=== PATIENT | male | born 1980 | race Asian ===

== ENCOUNTER 2020-03-24 23:47 | Inpatient (IN) | payer SELFPAY ==
[~2020-03-24] VITALS: Ht 167.6 cm; Wt 77.6 kg
[2020-03-24 23:55] VITALS: BP 147/82
[2020-03-25] VITALS (7 sets, daily range): BP systolic 102–123; BP diastolic 54–68
[2020-03-25] MEDS ORDERED: Ketorolac 30mg Inj IV ONE
[2020-03-25] MEDS ORDERED: Lidocaine 2% Visc 15ml soln ORAL ONE
[2020-03-25] MEDS ORDERED: Dicyclomine HCl 10mg/5ml oral soln ORAL ONE
[2020-03-25] MEDS ORDERED: Mylanta II UD 30ml ORAL ONE
[2020-03-25] MEDS ORDERED: Omnipaque-300 100ml vial INJ PRN (00:15)
[2020-03-25] MEDS ORDERED: Morphine Sulfate 4mg/ml Inj (IV USE ONLY) IVP ONE (00:15)
[2020-03-25 00:23] LABS: BASOPHILS % (AUTO) 0.9 % (0.0-2.0); EOSINOPHILS % (AUTO) 0.7 % (0.0-3.0); HEMATOCRIT 51.7 % (42.0-52.0); HEMOGLOBIN 17.3 G/DL (14.2-18.0); LYMPHOCYTES % (AUTO) 30.6 % (20.0-45.0); MEAN CORPUSCULAR VOLUME 94 FL (80-99); MONOCYTES % (AUTO) 6.2 % (1.0-10.0); NEUTROPHILS % (AUTO) 61.7 % (45.0-75.0); PLATELET COUNT 304 K/UL (150-450); RED BLOOD COUNT 5.49 M/UL (4.70-6.10); RED CELL DISTRIBUTION WIDTH 11.5 % (11.6-14.8)
[2020-03-25 00:32] LABS: ANION GAP 14 mmol/L (5-15); BLOOD UREA NITROGEN 13 mg/dL (7-18); CALCIUM 9.5 MG/DL (8.5-10.1); CARBON DIOXIDE 21 MMOL/L (21-32); CHLORIDE 105 MMOL/L (98-107); CREATININE 1.4 MG/DL (0.55-1.30); SODIUM 140 MMOL/L (136-145)
--- NOTE | 2020-03-25 00:33 | Emergency Room Report ---
History of Present Illness General Chief Complaint: Abdominal Pain Source: Patient Present Illness HPI 39-year-old male presents the ED complaining of abdominal pain. Came from home. Pain started tonight. Clutching his abdomen screaming in pain in triage. Pain is epigastric, 10 out of 10, sharp, nonradiating. Denies nausea or vomiting. Denies chest pain or shortness of breath. Patient had a bottle of Nexium and a bottle of docusate. No other aggravating relieving factors. Denies any other associated symptoms Allergies: Coded Allergies: No Known Allergies (Unverified , 03/24/20) COVID-19 Screening Contact w/high risk pt: No Experienced COVID-19 symptoms?: No COVID-19 Testing performed RISK ADJUSTMENT SPECIALIST: No Patient History Past Medical History: GERD Past Surgical History: none Pertinent Family History: none Social History: Denies: smoking, alcohol use, drug use Immunizations: UTD Reviewed Nursing Documentation: PMH: Agreed; PSxH: Agreed Nursing Documentation-PMH Past Medical History: No History, Except For Hx Gastrointestinal Problems: Yes Review of Systems All Other Systems: negative except mentioned in HPI Physical Exam Vital Signs Date Time Temp Pulse Resp B/P (MAP) Pulse Ox O2 Delivery O2 Flow Rate FiO2 03/24/20 23:54 97.9 79 18 149/90 (109) 100 Room Air 03/24/20 23:55 99 Sp02 EP Interpretation: reviewed, normal General Appearance: alert, GCS 15, non-toxic, mild distress Head: normocephalic, atraumatic Eyes: bilateral eye normal inspection, bilateral eye PERRL ENT: hearing grossly normal, normal pharynx, no angioedema, normal voice Neck: full range of motion, supple/symm/no masses Respiratory: chest non-tender, lungs clear, normal breath sounds, speaking full sentences Cardiovascular #1: regular rate, rhythm, no edema Cardiovascular #2: 2+ carotid (R), 2+ carotid (L), 2+ radial (R), 2+ radial (L) , 2+ dorsalis pedis (R), 2+ dorsalis pedis (L) Gastrointestinal: normal bowel sounds, soft, non-distended, no guarding, no rebound, tenderness Rectal: deferred Genitourinary: normal inspection, no CVA tenderness Musculoskeletal: back normal, normal range of motion, gait/station normal, non- tender Neurologic: alert, motor strength/tone normal, oriented x3, sensory intact, responsive, speech normal Psychiatric: judgement/insight normal, memory normal, mood/affect normal, no suicidal/homicidal ideation Reflexes: 3+ bicep (R), 3+ bicep (L), 3+ tricep (R), 3+ tricep (L), 3+ knee (R) , 3+ knee (L) Skin: no rash Lymphatic: no adenopathy Medical Decision Making Diagnostic Impression: Primary Impression: Cholecystitis ER Course Hospital Course 39-year-old M presents to ED with upper abd pain Differential diagnoses include: Appendicitis, cholecystitis, small bowel obstruction Clinical course Patient placed on stretcher. pamphlet distributor. After initial history and physical I ordered labs, IV fluids, UA, pain medication and CT Labs - no leukocytosis noted, Hb/Hct stable. electrolytes ok. CT A/P - cystic duct dilated with GB distension ? cholecysitis Antibiotics given. Case discussed with Dr. Keller and he agreed to consult. Case discussed with Dr. De La Rosa and he agreed to accept the patient to his service for further care and support I feel this is a highly complex case requiring extensive working including EKG/ Rhythm strip, Xray/CT/US, Blood/urine lab work, repeat exams while in ED, and administration of strong opiates/narcotics for pain control, admission to hospital or close patient follow up. Diagnosis - cholecystitis Patient admitted to hospital in serious condition Laboratory Tests Test 03/25/20 00:00 White Blood Count 10.0 K/UL (4.8-10.8) Red Blood Count 5.49 M/UL (4.70-6.10) Hemoglobin 17.3 G/DL (14.2-18.0) Hematocrit 51.7 % (42.0-52.0) Mean Corpuscular Volume 94 FL (80-99) Mean Corpuscular Hemoglobin 31.5 PG (27.0-31.0) H Mean Corpuscular Hemoglobin Concent 33.5 G/DL (32.0-36.0) Red Cell Distribution Width 11.5 % (11.6-14.8) L Platelet Count 304 K/UL (150-450) Mean Platelet Volume 6.0 FL (6.5-10.1) L Neutrophils (%) (Auto) 61.7 % (45.0-75.0) Lymphocytes (%) (Auto) 30.6 % (20.0-45.0) Monocytes (%) (Auto) 6.2 % (1.0-10.0) Eosinophils (%) (Auto) 0.7 % (0.0-3.0) Basophils (%) (Auto) 0.9 % (0.0-2.0) Prothrombin Time 11.7 SEC (9.30-11.50) H Prothromb Time International Ratio 1.1 (0.9-1.1) Activated Partial Thromboplast Time 27 SEC (23-33) Urine Color Pale yellow Urine Appearance Clear Urine pH 5 (4.5-8.0) Urine Specific [place] 1.010 (1.005-1.035) Urine Protein Negative (NEGATIVE) Urine Glucose (UA) Negative (NEGATIVE) Urine Ketones 3+ (NEGATIVE) H Urine Blood Negative (NEGATIVE) Urine Nitrite Negative (NEGATIVE) Urine Bilirubin Negative (NEGATIVE) Urine Urobilinogen Normal MG/DL (0.0-1.0) Urine Leukocyte Esterase Negative (NEGATIVE) Sodium Level 140 MMOL/L (136-145) Potassium Level 3.0 MMOL/L (3.5-5.1) L Chloride Level 105 MMOL/L (98-107) Carbon Dioxide Level 21 MMOL/L (21-32) Anion Gap 14 mmol/L (5-15) Blood Urea Nitrogen 13 mg/dL (7-18) Creatinine 1.4 MG/DL (0.55-1.30) H Estimat Glomerular Filtration Rate 57.0 mL/min (>60) Glucose Level 124 MG/DL (74-106) H Calcium Level 9.5 MG/DL (8.5-10.1) Total Bilirubin 0.6 MG/DL (0.2-1.0) Aspartate Amino Transf (AST/SGOT) 37 U/L (15-37) Alanine Aminotransferase (ALT/SGPT) 164 U/L (12-78) H Alkaline Phosphatase 82 U/L (46-116) Total Protein 7.9 G/DL (6.4-8.2) Albumin 4.5 G/DL (3.4-5.0) Globulin 3.4 g/dL Albumin/Globulin Ratio 1.3 (1.0-2.7) Lipase 261 U/L (73-393) CT/MRI/US Diagnostic Results CT/MRI/US Diagnostic Results : Imaging Test Ordered: CT A/P Impression EXAM: CT Abdomen and Pelvis With Intravenous Contrast CLINICAL HISTORY: ABD PAIN TECHNIQUE: Axial computed tomography images of the abdomen and pelvis with intravenous contrast. CTDI is 4 mGy and DLP is 248 mGy-cm. One or more of the following dose reduction techniques were used: automated exposure control, adjustment of the mA and/or kV according to patient size, use of iterative reconstruction technique. COMPARISON: No relevant prior studies available. FINDINGS: Lung bases: Unremarkable. No mass. No consolidation. ABDOMEN: Liver: Unremarkable. No mass. Gallbladder and bile ducts: There is a 7 mm stone within the cystic duct. The gallbladder is distended. Pancreas: Unremarkable. No mass. No ductal dilation. Spleen: Unremarkable. No splenomegaly. Adrenals: Unremarkable. No mass. Kidneys and ureters: A tiny focus of decreased attenuation at the lower pole of the left kidney is too small to characterize by CT criteria. No solid mass. No hydronephrosis. Stomach and bowel: Unremarkable. No obstruction. No mucosal thickening. PELVIS: Appendix: No findings to suggest acute appendicitis. Bladder: Unremarkable. No mass. Reproductive: Unremarkable as visualized. ABDOMEN and PELVIS: Intraperitoneal space: Unremarkable. No free air. No significant fluid collection. Bones/joints: There are degenerative changes at L5-S1. 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 No dislocation. Soft tissues: There is prominence of breast tissue consistent with gynecomastia. Vasculature: Unremarkable. No abdominal aortic aneurysm. Lymph nodes: Unremarkable. No enlarged lymph nodes. IMPRESSION: 7 mm cystic duct calculus with gallbladder distention. Findings are concerning for cholecystitis. Last Vital Signs Date Time Temp Pulse Resp B/P (MAP) Pulse Ox O2 Delivery O2 Flow Rate FiO2 03/24/20 23:55 98.2 76 18 147/82 99 Room Air 03/24/20 23:55 99 Status: improved Disposition: ADMITTED INPATIENT Condition: Serious Referrals: NOT CHOSEN IPA/,REFERRING (PCP) Clayton Broussard MD Mar 25, 2020 00:33
[2020-03-25 00:37] LABS: ALANINE AMINOTRANSFERASE 164 U/L (12-78); ALBUMIN 4.5 G/DL (3.4-5.0); ALBUMIN/GLOBULIN RATIO 1.3 (1.0-2.7); ALKALINE PHOSPHATASE 82 U/L (46-116); ASPARTATE AMINO TRANSFERASE 37 U/L (15-37); BILIRUBIN,TOTAL 0.6 MG/DL (0.2-1.0)
--- NOTE | 2020-03-25 01:36 | Diagnostic Imaging Report ---
EXAM: CT Abdomen and Pelvis With Intravenous Contrast CLINICAL HISTORY: ABD PAIN TECHNIQUE: Axial computed tomography images of the abdomen and pelvis with intravenous contrast. CTDI is 4 mGy and DLP is 248 mGy-cm. One or more of the following dose reduction techniques were used: automated exposure control, adjustment of the mA and/or kV according to patient size, use of iterative reconstruction technique. COMPARISON: No relevant prior studies available. FINDINGS: Lung bases: Unremarkable. No mass. No consolidation. ABDOMEN: Liver: Unremarkable. No mass. Gallbladder and bile ducts: There is a 7 mm stone within the cystic duct. The gallbladder is distended. Pancreas: Unremarkable. No mass. No ductal dilation. Spleen: Unremarkable. No splenomegaly. Adrenals: Unremarkable. No mass. Kidneys and ureters: A tiny focus of decreased attenuation at the lower pole of the left kidney is too small to characterize by CT criteria. No solid mass. No hydronephrosis. Stomach and bowel: Unremarkable. No obstruction. No mucosal thickening. PELVIS: Appendix: No findings to suggest acute appendicitis. Bladder: Unremarkable. No mass. Reproductive: Unremarkable as visualized. ABDOMEN and PELVIS: Intraperitoneal space: Unremarkable. No free air. No significant fluid collection. Bones/joints: There are degenerative changes at L5-S1. 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 No dislocation. Soft tissues: There is prominence of breast tissue consistent with gynecomastia. Vasculature: Unremarkable. No abdominal aortic aneurysm. Lymph nodes: Unremarkable. No enlarged lymph nodes. IMPRESSION: 7 mm cystic duct calculus with gallbladder distention. Findings are concerning for cholecystitis.
[2020-03-25] MEDS ORDERED: Piperacillin/Tazobactam 3.375 GM in NS 110 ML IVPB ONE (01:45)
[2020-03-25 01:55] LABS: INR 1.1 (0.9-1.1)
[2020-03-25] MEDS ORDERED: Ketorolac 30mg Inj IV PRN (02:30)
[2020-03-25 02:48] LABS: APPEARANCE,URINE CLEAR; BILIRUBIN, URINE NEGATIVE (NEGATIVE); COLOR,URINE PALE YELLOW; GLUCOSE, URINE (UA) NEGATIVE (NEGATIVE); KETONES,URINE 3+ (NEGATIVE); LEUKOCYTE ESTERASE ,URINE NEGATIVE (NEGATIVE); NITRITE,URINE NEGATIVE (NEGATIVE); PH,URINE 5 (4.5-8.0); PROTEIN,URINE NEGATIVE (NEGATIVE); UROBILINOGEN,URINE NORMAL MG/DL (0.0-1.0)
[2020-03-25] MEDS ORDERED: D5 1/2NS 1,000 ML IV SCH (06:45)
[2020-03-25] MEDS ORDERED: Morphine Sulfate 2mg/ml Inj(IV/IM USE ONLY) IVP PRN (06:45)
--- NOTE | 2020-03-25 11:03 | Consultation ---
History of Present Illness General Date patient seen: Mar 25, 2020 Chief Complaint: Abdominal Pain Present Illness HPI 39 y/o M with hx of GERD presented to ED on 03/24 with 1 day of abd pain ( epigastric, 10/10 intensity, sharp, non radiating) Denied nausea, vomiting, CP, SOB. Allergies: Coded Allergies: No Known Allergies (Unverified , 03/24/20) Patient History Healthcare decision maker Resuscitation status Advanced Directive on File Patient History Narrative Pmhx: as above Shx: Denies: smoking, alcohol use, drug use Fhx: non contributory Review of Systems All Other Systems: negative except mentioned in HPI Physical Exam Physical Exam Narrative General Appearance: aler Head: normocephalic, atraumatic Eyes: bilateral eye normal inspection, bilateral eye PERRL ENT: hearing grossly normal, normal pharynx, no angioedema, normal voice Neck: full range of motion, supple/symm/no masses Respiratory: chest non-tender, lungs clear, normal breath sounds, speaking full sentences Cardiovascular #1: regular rate, rhythm, no edema Gastrointestinal: normal bowel sounds, soft, non-distended, no guarding, no rebound, tenderness Last 24 Hour Vital Signs Date Time Temp Pulse Resp B/P (MAP) Pulse Ox O2 Delivery O2 Flow Rate FiO2 03/25/20 09:00 Room Air 03/25/20 08:00 98.7 66 18 106/54 (71) 97 03/25/20 04:00 98.1 71 16 106/68 (81) 98 03/25/20 03:54 Room Air 03/25/20 03:35 98.1 63 18 123/65 99 Room Air 99 03/25/20 03:34 98.1 63 18 123/65 99 Room Air 99 03/25/20 02:00 98.5 68 18 119/62 99 Room Air 99 03/24/20 23:55 98.2 76 18 147/82 99 Room Air 03/24/20 23:55 76 18 Room Air 99 03/24/20 23:54 97.9 79 18 149/90 (109) 100 Room Air Intake and Output 03/24/20 03/25/20 18:59 06:59 Intake Total 1000 ml Balance 1000 ml Intake IV Total 1000 ml # Bowel Movements 1 Laboratory Tests Test 03/25/20 00:00 White Blood Count 10.0 K/UL (4.8-10.8) Red Blood Count 5.49 M/UL (4.70-6.10) Hemoglobin 17.3 G/DL (14.2-18.0) Hematocrit 51.7 % (42.0-52.0) Mean Corpuscular Volume 94 FL (80-99) Mean Corpuscular Hemoglobin 31.5 PG (27.0-31.0) H Mean Corpuscular Hemoglobin Concent 33.5 G/DL (32.0-36.0) Red Cell Distribution Width 11.5 % (11.6-14.8) L Platelet Count 304 K/UL (150-450) Mean Platelet Volume 6.0 FL (6.5-10.1) L Neutrophils (%) (Auto) 61.7 % (45.0-75.0) Lymphocytes (%) (Auto) 30.6 % (20.0-45.0) Monocytes (%) (Auto) 6.2 % (1.0-10.0) Eosinophils (%) (Auto) 0.7 % (0.0-3.0) Basophils (%) (Auto) 0.9 % (0.0-2.0) Prothrombin Time 11.7 SEC (9.30-11.50) H Prothromb Time International Ratio 1.1 (0.9-1.1) Activated Partial Thromboplast Time 27 SEC (23-33) Urine Color Pale yellow Urine Appearance Clear Urine pH 5 (4.5-8.0) Urine Specific [place] 1.010 (1.005-1.035) Urine Protein Negative (NEGATIVE) Urine Glucose (UA) Negative (NEGATIVE) Urine Ketones 3+ (NEGATIVE) H Urine Blood Negative (NEGATIVE) Urine Nitrite Negative (NEGATIVE) Urine Bilirubin Negative (NEGATIVE) Urine Urobilinogen Normal MG/DL (0.0-1.0) Urine Leukocyte Esterase Negative (NEGATIVE) Sodium Level 140 MMOL/L (136-145) Potassium Level 3.0 MMOL/L (3.5-5.1) L Chloride Level 105 MMOL/L (98-107) Carbon Dioxide Level 21 MMOL/L (21-32) Anion Gap 14 mmol/L (5-15) Blood Urea Nitrogen 13 mg/dL (7-18) Creatinine 1.4 MG/DL (0.55-1.30) H Estimat Glomerular Filtration Rate 57.0 mL/min (>60) Glucose Level 124 MG/DL (74-106) H Calcium Level 9.5 MG/DL (8.5-10.1) Total Bilirubin 0.6 MG/DL (0.2-1.0) Aspartate Amino Transf (AST/SGOT) 37 U/L (15-37) Alanine Aminotransferase (ALT/SGPT) 164 U/L (12-78) H Alkaline Phosphatase 82 U/L (46-116) Total Protein 7.9 G/DL (6.4-8.2) Albumin 4.5 G/DL (3.4-5.0) Globulin 3.4 g/dL Albumin/Globulin Ratio 1.3 (1.0-2.7) Lipase 261 U/L (73-393) Height (Feet): 5 Height (Inches): 6.00 Weight (Pounds): 171 Medications Current Medications Medications (Trade) Dose Ordered Sig/Carlos Alberto Route PRN Reason Start Time Stop Time Status Last Admin Dose Admin Acetaminophen (Tylenol) 650 mg Q6H PRN ORAL TEMP>100.5 03/25/20 02:30 Dextrose/Sodium Chloride 1,000 ml @ 60 mls/hr [id number] IV 03/25/20 06:45 04/24/20 06:44 03/25/20 06:46 Iohexol (OMNIPAQUE-300 100ml) 100 ml NOW PRN INJ Radiology Procedure 03/25/20 00:15 03/27/20 00:03 Ketorolac Tromethamine (Toradol 30mg) 15 mg PRN PRN IV Moderate Breakthru Pain (5-7) 03/25/20 02:30 Morphine Sulfate (Morphine Sulfate) 2 mg Q4H PRN IVP For Pain 03/25/20 06:45 04/01/20 06:44 Ondansetron HCl (Zofran) 4 mg Q4H PRN IVP Nausea & Vomiting 03/25/20 06:45 04/24/20 06:44 Assessment/Plan Assessment/Plan: Abx: Zosyn x1 03/25 Assessment: Acute cholecystitis -CT abd/p: 7 mm cystic duct calculus with gallbladder distention. Findings are concerning for cholecystitis. Afebrile No leukocytosis NELLI GERD Plan: -Start Ceftriaxone -f/u cx -Monitor CBC/CMP, temperatures -Sx eval Thank you for this consultation. Will continue to follow along with you. Discussed with KIANA. Ayleen Medina M.D. Mar 25, 2020 11:03
--- NOTE | 2020-03-25 11:55 | General Progress Note ---
Assessment/Plan Problem List: (1) Cholecystitis ICD Codes: K81.9 - Cholecystitis, unspecified SNOMED: [id number] Assessment/Plan: ct reviewed npo iv abx per ID pain control fu surg recs Subjective ROS Limited/Unobtainable: Yes Allergies: Coded Allergies: No Known Allergies (Unverified , 03/24/20) Objective Last 24 Hour Vital Signs Date Time Temp Pulse Resp B/P (MAP) Pulse Ox O2 Delivery O2 Flow Rate FiO2 03/25/20 09:00 Room Air 03/25/20 08:00 98.7 66 18 106/54 (71) 97 03/25/20 04:00 98.1 71 16 106/68 (81) 98 03/25/20 03:54 Room Air 03/25/20 03:35 98.1 63 18 123/65 99 Room Air 99 03/25/20 03:34 98.1 63 18 123/65 99 Room Air 99 03/25/20 02:00 98.5 68 18 119/62 99 Room Air 99 03/24/20 23:55 98.2 76 18 147/82 99 Room Air 03/24/20 23:55 76 18 Room Air 99 03/24/20 23:54 97.9 79 18 149/90 (109) 100 Room Air Intake and Output 03/24/20 03/25/20 19:00 07:00 Intake Total 1000 ml Balance 1000 ml Intake IV Total 1000 ml # Bowel Movements 1 Laboratory Tests 03/25/20 00:00: White Blood Count 10.0, Red Blood Count 5.49, Hemoglobin 17.3, Hematocrit 51.7, Mean Corpuscular Volume 94, Mean Corpuscular Hemoglobin 31.5H, Mean Corpuscular Hemoglobin Concent 33.5, Red Cell Distribution Width 11.5L, Platelet Count 304, Mean Platelet Volume 6.0L, Neutrophils (%) (Auto) 61.7, Lymphocytes (%) (Auto) 30.6, Monocytes (%) (Auto) 6.2, Eosinophils (%) (Auto) 0.7, Basophils (%) (Auto ) 0.9, Prothrombin Time 11.7H, Prothromb Time International Ratio 1.1, Activated Partial Thromboplast Time 27, Urine Color Pale yellow, Urine Appearance Clear, Urine pH 5, Urine Specific [place] 1.010, Urine Protein Negative, Urine Glucose (UA) Negative, Urine Ketones 3+H, Urine Blood Negative, Urine Nitrite Negative, Urine Bilirubin Negative, Urine Urobilinogen Normal, Urine Leukocyte Esterase Negative, Sodium Level 140, Potassium Level 3.0L, Chloride Level 105, Carbon Dioxide Level 21, Anion Gap 14, Blood Urea Nitrogen 13, Creatinine 1.4H, Estimat Glomerular Filtration Rate 57.0, Glucose Level 124H , Calcium Level 9.5, Total Bilirubin 0.6, Aspartate Amino Transf (AST/SGOT) 37, Alanine Aminotransferase (ALT/SGPT) 164H, Alkaline Phosphatase 82, Total Protein 7.9, Albumin 4.5, Globulin 3.4, Albumin/Globulin Ratio 1.3, Lipase 261 Height (Feet): 5 Height (Inches): 6.00 Weight (Pounds): 171 General Appearance: alert EENT: normal ENT inspection Neck: supple Cardiovascular: normal rate Respiratory/Chest: decreased breath sounds Abdomen: normal bowel sounds, non tender, soft Extremities: non-tender Doug Zamora MD Mar 25, 2020 11:55
[2020-03-25] MEDS ORDERED: cefTRIAXone 1 GM in D5W 55 ML IVPB SCH (12:00)
--- NOTE | 2020-03-25 13:00 | History and Physical Report ---
DATE OF ADMISSION: 03/25/2020 TIME SEEN: 10 a.m. CONSULTANTS: 1. Hossein Gregorio MD. 2. Doug Zamora MD. 3. Nic Keller MD. CHIEF COMPLAINT: Abdominal pain, nausea, vomiting, and cholecystitis. HISTORY OF PRESENT ILLNESS: This is a 39-year-old male, who lives at home, presented with two days of increased abdominal pain, nausea, and vomiting, came to [facility], diagnosed with cholecystitis admitted to medical floor. Currently, calm, in bed. No complaint. REVIEW OF SYSTEMS: No chest pain. No shortness of breath. Slight nausea and vomiting. PAST MEDICAL HISTORY: Nothing. PAST SURGICAL HISTORY: Hernia. ALLERGIES: Denies. MEDICATIONS: Include dextrose, morphine, Zofran, Tylenol, ketorolac, potassium, Zosyn, famotidine . SOCIAL HISTORY: No smoking. No alcohol. No intravenous drug abuse. FAMILY HISTORY: Noncontributory. PHYSICAL EXAMINATION: GENERAL: Calm in bed, oriented x3, in no acute distress. VITAL SIGNS: Temperature 98 degrees, pulse 66, respirations , blood pressure 106/54. CARDIOVASCULAR: No murmur. LUNGS: Distant and clear. ABDOMEN: Positive bowel sounds. Nontender and nondistended. EXTREMITIES: Show no cyanosis or edema. NEUROLOGIC: The patient moves all extremities, slightly weak. LABORATORY AND DIAGNOSTIC DATA: Labs at this time show CBC is normal. Potassium 3.0, creatinine 1.4. Glucose 124. ALT 164. INR is 1.1. PTT is 27 urinalysis, 3+ ketones. ASSESSMENT: 1. Cholecystitis. 2. Abdominal pain, nausea, and vomiting 3. Hypokalemia. PLAN: 1. NPO. 2. IV fluids. 3. Pain control. 4. Antibiotics per Infectious Disease. 5. PT and dietary evaluation. 6. CBC and BMP in the morning. 7. Replace potassium. Gerber De La Rosa D.O. DR: HUNTER JOB#: [id number] CC:
--- NOTE | 2020-03-25 20:31 | Consultation ---
History of Present Illness General Date patient seen: Mar 25, 2020 Reason for Hospitalization: Abdominal Pain Present Illness HPI 39M abd pain epigastric 10/10 for 1 day. states began yesterday. came to ED. labs nml. CT with cholelithiasis. admitted for surgical eval. since pain resolved. no n/v/f/c. labs nml. no complaints. hx prior episode few months back. prior on keto diet as well for 1 year but not now. Allergies: Coded Allergies: No Known Allergies (Unverified , 03/24/20) COVID-19 Screening Contact w/high risk pt: No Experienced COVID-19 symptoms?: No Patient History History Provided By: Patient Healthcare decision maker Resuscitation status Advanced Directive on File Past Medical/Surgical History Past Medical/Surgical History: (1) Cholecystitis Review of Systems Review of Symptoms General ROS: no weight loss or fever Psychological ROS: no depression or mood changes, no memory loss Ophthalmic ROS: no visual changes or eye irritation ENT ROS: no nasal congestion, hearing loss, dizziness Allergy and Immunology ROS: no allergic symptoms or urticaria Hematological and Lymphatic ROS: no swollen glands, unusual bleeding or bruising Endocrine ROS: no polyuria, polydipsia, weight changes, temperature intolerance Respiratory ROS: no cough, shortness of breath, or wheezing Cardiovascular ROS: no chest pain or dyspnea on exertion Gastrointestinal ROS: denies abdominal pain, bright red blood in stool. Musculoskeletal ROS: no myalgias or arthralgias Neurological ROS: no TIA or stroke symptoms Dermatological ROS: no new or changing skin lesions, rashes or pruritis Physical Exam Physical Exam General appearance: alert, cooperative, no distress, appears stated age Head: Normocephalic, without obvious abnormality, atraumatic Eyes: conjunctivae/corneas clear. PERRL, EOM's intact. Fundi benign Throat: Lips, mucosa, and tongue normal. Teeth and gums normal Neck: supple, symmetrical, trachea midline, no adenopathy, thyroid: not enlarged, symmetric, no tenderness/mass/nodules, no carotid bruit and no JVD Lungs: clear to auscultation bilaterally Heart: regular rate and rhythm, S1, S2 normal, no murmur, click, rub or gallop Abdomen: soft, non-tender. Bowel sounds normal. No masses, no organomegaly Extremities: extremities normal, atraumatic, no cyanosis or edema Pulses: 2+ and symmetric Skin: Skin color, texture, turgor normal. No rashes or lesions Neurologic: Grossly normal Last 24 Hour Vital Signs Date Time Temp Pulse Resp B/P (MAP) Pulse Ox O2 Delivery O2 Flow Rate FiO2 03/25/20 20:15 Room Air 03/25/20 16:00 96.8 60 18 102/58 (73) 100 03/25/20 12:00 97.8 60 18 104/57 (73) 98 03/25/20 09:00 Room Air 03/25/20 08:00 98.7 66 18 106/54 (71) 97 03/25/20 04:00 98.1 71 16 106/68 (81) 98 03/25/20 03:54 Room Air 03/25/20 03:35 98.1 63 18 123/65 99 Room Air 99 03/25/20 03:34 98.1 63 18 123/65 99 Room Air 99 03/25/20 02:00 98.5 68 18 119/62 99 Room Air 99 03/24/20 23:55 98.2 76 18 147/82 99 Room Air 03/24/20 23:55 76 18 Room Air 99 03/24/20 23:54 97.9 79 18 149/90 (109) 100 Room Air Intake and Output 03/24/20 03/25/20 19:00 07:00 Intake Total 1000 ml Balance 1000 ml Intake IV Total 1000 ml # Bowel Movements 1 Laboratory Tests Test 03/25/20 00:00 White Blood Count 10.0 K/UL (4.8-10.8) Red Blood Count 5.49 M/UL (4.70-6.10) Hemoglobin 17.3 G/DL (14.2-18.0) Hematocrit 51.7 % (42.0-52.0) Mean Corpuscular Volume 94 FL (80-99) Mean Corpuscular Hemoglobin 31.5 PG (27.0-31.0) H Mean Corpuscular Hemoglobin Concent 33.5 G/DL (32.0-36.0) Red Cell Distribution Width 11.5 % (11.6-14.8) L Platelet Count 304 K/UL (150-450) Mean Platelet Volume 6.0 FL (6.5-10.1) L Neutrophils (%) (Auto) 61.7 % (45.0-75.0) Lymphocytes (%) (Auto) 30.6 % (20.0-45.0) Monocytes (%) (Auto) 6.2 % (1.0-10.0) Eosinophils (%) (Auto) 0.7 % (0.0-3.0) Basophils (%) (Auto) 0.9 % (0.0-2.0) Prothrombin Time 11.7 SEC (9.30-11.50) H Prothromb Time International Ratio 1.1 (0.9-1.1) Activated Partial Thromboplast Time 27 SEC (23-33) Urine Color Pale yellow Urine Appearance Clear Urine pH 5 (4.5-8.0) Urine Specific [place] 1.010 (1.005-1.035) Urine Protein Negative (NEGATIVE) Urine Glucose (UA) Negative (NEGATIVE) Urine Ketones 3+ (NEGATIVE) H Urine Blood Negative (NEGATIVE) Urine Nitrite Negative (NEGATIVE) Urine Bilirubin Negative (NEGATIVE) Urine Urobilinogen Normal MG/DL (0.0-1.0) Urine Leukocyte Esterase Negative (NEGATIVE) Sodium Level 140 MMOL/L (136-145) Potassium Level 3.0 MMOL/L (3.5-5.1) L Chloride Level 105 MMOL/L (98-107) Carbon Dioxide Level 21 MMOL/L (21-32) Anion Gap 14 mmol/L (5-15) Blood Urea Nitrogen 13 mg/dL (7-18) Creatinine 1.4 MG/DL (0.55-1.30) H Estimat Glomerular Filtration Rate 57.0 mL/min (>60) Glucose Level 124 MG/DL (74-106) H Calcium Level 9.5 MG/DL (8.5-10.1) Total Bilirubin 0.6 MG/DL (0.2-1.0) Aspartate Amino Transf (AST/SGOT) 37 U/L (15-37) Alanine Aminotransferase (ALT/SGPT) 164 U/L (12-78) H Alkaline Phosphatase 82 U/L (46-116) Total Protein 7.9 G/DL (6.4-8.2) Albumin 4.5 G/DL (3.4-5.0) Globulin 3.4 g/dL Albumin/Globulin Ratio 1.3 (1.0-2.7) Lipase 261 U/L (73-393) Height (Feet): 5 Height (Inches): 6.00 Weight (Pounds): 171 Medications Current Medications Medications (Trade) Dose Ordered Sig/Carlos Alberto Route PRN Reason Start Time Stop Time Status Last Admin Dose Admin Acetaminophen (Tylenol) 650 mg Q6H PRN ORAL TEMP>100.5 03/25/20 02:30 Ceftriaxone Sodium 1 gm/ Dextrose 55 ml @ 110 mls/hr Q24H IVPB 03/25/20 12:00 04/01/20 11:59 03/25/20 12:02 Dextrose/Sodium Chloride 1,000 ml @ 60 mls/hr [id number] IV 03/25/20 06:45 04/24/20 06:44 03/25/20 06:46 Iohexol (OMNIPAQUE-300 100ml) 100 ml NOW PRN INJ Radiology Procedure 03/25/20 00:15 03/27/20 00:03 Ketorolac Tromethamine (Toradol 30mg) 15 mg PRN PRN IV Moderate Breakthru Pain (5-7) 03/25/20 02:30 Morphine Sulfate (Morphine Sulfate) 2 mg Q4H PRN IVP For Pain 03/25/20 06:45 04/01/20 06:44 Ondansetron HCl (Zofran) 4 mg Q4H PRN IVP Nausea & Vomiting 03/25/20 06:45 04/24/20 06:44 Assessment/Plan Problem List: (1) Cholecystitis Assessment & Plan: 39M biliary colic pain resolved exam benign +bowel function labs nml CT reviewed. 7mm stone. gb distention without signs of inflammation. biliary colic diet d/c home f/u outpatient elective lap samreen if desired thank you ICD Codes: K81.9 - Cholecystitis, unspecified SNOMED: [id number] Nic Keller Mar 25, 2020 20:31
--- NOTE | 2020-03-26 18:06 | Discharge Summary ---
Discharge Summary Discharge Summary _ DATE OF ADMISSION: 03/25/2020 DATE OF DISCHARGE: 03/25/2020 DISCHARGED BY: Dr De La Rosa REASON FOR ADMISSION: 39 years old male with past medical history of GERD, presented to emergency department, complaining of abdominal pain , started earlier that night. Pain reported as epigastric, sharp, nonradiating, 10 out of 10. He denied nausea and vomiting. He denied chest pain , shortness of breath. Upon evaluation vital signs were stable. Laboratory work-up revealed no leukocytosis, stable hemoglobin, hematocrit and electrolytes. CT of the abdomen and pelvis revealed cystic duct dilatation with gallbladder distention, possible cholecystitis. Patient received fluids, analgesic, empiric antibiotic and admitted for further management. CONSULTANTS: ID specialist Dr. Medina GI specialist Dr. Zamora surgery Dr. Keller [facility] COURSE: Patient admitted to medical surgical floor. GI specialist seen and evaluated patient. Patient initially was made n.p.o. Pain management was addressed . Antibiotic provided as per ID specialist recommendation. Patient had no fever, no leukocytosis. GI specialist recommended surgery evaluation Surgeon seen and evaluated patient. Pain was resolved. Labs remained stable. CT scan revealed cholelithiasis. No fever or chills. No nausea or vomiting. Patient had a prior episode like this 2 months ago. Patient apparently was on keto diet , but not currently. Per surgeon patient had a biliary colic . Patient slowly started on diet and was advanced as tolerated. Antiemetic were on board as needed. Analgesics provided as needed. Surgeon recommended elective laparoscopic cholecystectomy if patient desired and follow-up with surgeon as outpatient. Patient agreed with this plan . Pain was resolved . Patient was stable for discharge. Due to rapid and unexpected improvement in patient condition, patient was discharged in 1 day. FINAL DIAGNOSES: Biliary colic Cholecystitis Cholelithiasis GERD DISCHARGE MEDICATIONS: See Medication Reconciliation list. DISCHARGE INSTRUCTIONS: Patient was discharged home. Outpatient follow-up with surgeon. I have been assigned to dictate discharge summary for this account. I was not involved in the patient's management. Smita Cevallos NP Mar 26, 2020 18:06
== END 2020-03-25 21:15 | disposition home or self-care (01) | DRG 446 ==
LOC: EMR 03-25 00:09 → 3E 03-25 02:19 → EDBEDREQ 03-25 03:14
DX: K80.10 Calculus of gallbladder with chronic cholecystitis without obstruction (principal); K21.9 Gastro-esophageal reflux disease without esophagitis; E87.6 Hypokalemia
CPT/HCPCS: 36415; 74177; 80053; 81003; 83690; 85025; 85610; 85730; 86850; 86900; 86901; 96361; 96365; 96375; 99285; J2405; J7030; J8499